=== PATIENT | female | born 1975 | race Caucasian/White ===

== ENCOUNTER 2017-04-29 23:27 | Emergency (ER) | payer OTHER ==
[~2017-04-29] VITALS: Ht 157.5 cm; Wt 62.5 kg
[~2017-04-29 23:27] MED LIST: KEFLEX500 MG PO; PERCOCET 5/31 TABLET PO; ZOFRAN4 MG PO
[2017-04-29 23:32] VITALS: BP 127/80
[2017-04-30] MEDS ORDERED: MOTRIN800 MG PO (00:09)
[2017-04-30] MEDS ORDERED: PEN-VEE K,VEET500 MG PO (00:09)
== END 2017-04-30 00:33 | disposition home or self-care (01) ==
LOC: RME 23:27 → EME 23:27 → RME 04-30 00:33
DX: K08.89 Other specified disorders of teeth and supporting structures (principal)
CPT/HCPCS: 99281; 99284

== ENCOUNTER 2017-07-01 08:20 | Emergency (ER) | payer OTHER ==
[~2017-07-01] VITALS: Ht 157.5 cm; Wt 60.9 kg
[~2017-07-01 08:20] MED LIST changes: +MOTRIN800 MG PO; +PEN-VEE K,VEET500 MG PO
[2017-07-01 12:08] LABS: HEMATOCRIT 37.2 % (36.0-46.0); HEMOGLOBIN 12.6 G/DL (11.9-15.5); MCH 31.3 PG (29.0-34.0); MCHC 33.9 G/DL (30.0-36.0); MCV 92.5 FL (83-99); PLATELET COUNT 252 K/uL (156-360); RBC DIS.WIDTH-CV 12.6 % (11.8-14.6); RBC DIS.WIDTH-SD 42.9 % (39-53); RED BLOOD COUNT 4.02 M/uL (3.80-5.20); WHITE BLOOD COUNT 12.9 K/uL (4.1-10.2)
[2017-07-01 12:31] LABS: CHLORIDE 108 mEq/L (99-109); POTASSIUM 4.4 mEq/L (3.7-5.4); SODIUM 141 mEq/L (136-147)
[2017-07-01 12:33] LABS: GLUCOSE 97 mg/dL (70-99)
[2017-07-01 12:36] LABS: CREATININE 0.8 mg/dL (0.6-1.3); GFR ESTIMATE (CALCULATED) > 59 mL/min/
[2017-07-01 12:37] LABS: UREA NITROGEN (BUN) 19 mg/dL (9-23)
[2017-07-01] MEDS ORDERED: NORCO 5/3251 TABLET PO (12:46)
[2017-07-01] MEDS ORDERED: CLEOCIN300 MG PO (12:46)
[2017-07-01 12:57] VITALS: BP 122/84
== END 2017-07-01 12:58 | disposition home or self-care (01) ==
LOC: EME 08:20
PROVIDERS: Nurse Practitioner Family
DX: L03.211 Cellulitis of face (principal); K02.9 Dental caries, unspecified; F17.200 Nicotine dependence, unspecified, uncomplicated
CPT/HCPCS: 70486; 80048; 85027; 99281; 99283